=== PATIENT | female | born 1960 | race Hispanic/Latino ===

== ENCOUNTER 2017-11-05 06:15 | Day surgery (SDC) | payer BC ==
[~2017-11-05] VITALS: Ht 154.9 cm; Wt 60.3 kg
[2017-11-05 06:58] VITALS: BP 141/63
[2017-11-05] MEDS ORDERED: SODIUM CHLORIDE 0.9% 1000ML 1,000 ML IV ONE ×2 (06:58)
[2017-11-05] MEDS ORDERED: EMPA10TA PO (07:30)
[2017-11-05] MEDS ORDERED: FEXO180T94 PO (07:30)
[2017-11-05] MEDS ORDERED: METF500T6 PO (07:30)
[2017-11-05] MEDS ORDERED: OMEP40CA37 PO (07:30)
[2017-11-05] MEDS ORDERED: AMLO1TAB12 PO (07:30)
[2017-11-05] MEDS ORDERED: ATOR20TA65 PO (07:30)
[2017-11-05] MEDS ORDERED: GLYCOPYRROLATE 0.2 MG/ML 5 ML VIAL ONE (07:34)
[2017-11-05] MEDS ORDERED: MIDAZOLAM HCL 1 MG/ML 2ML VIAL ONE (07:34)
[2017-11-05] MEDS ORDERED: LIDOCAINE HCL 2% 20ML ONE (07:34)
[2017-11-05] MEDS ORDERED: PROPOFOL 1000 MG/100 ML 100 ML IV ONE (07:35)
[2017-11-05 07:52] VITALS: BP 94/48
[2017-11-05 08:12] VITALS: BP 113/56
== END 2017-11-05 08:20 ==
LOC: ENDO 06:15 → DAH 06:15 → ENDO 08:20
PROVIDERS: ATTEND Internal Medicine Gastroenterology
DX: Z12.11 Encounter for screening for malignant neoplasm of colon (principal); K21.9 Gastro-esophageal reflux disease without esophagitis; I10 Essential (primary) hypertension; E78.5 Hyperlipidemia, unspecified; E11.9 Type 2 diabetes mellitus without complications; Z79.84 Long term (current) use of oral hypoglycemic drugs; Z79.899 Other long term (current) drug therapy; Z80.8 Family history of malignant neoplasm of other organs or systems; Z80.9 Family history of malignant neoplasm, unspecified
CPT/HCPCS: 45378; 82948 ×2; A4606; J2250; J2704; J3490 ×2; J7030 ×2